=== PATIENT | male | born 1935 | race Caucasian/White ===

== ENCOUNTER 2018-09-29 08:51 | Inpatient (IN) ==
--- NOTE | 2018-09-29 09:15 | PROVIDER DOCUMENTATION ---
PPX-Ctevxa-Lqxozygargv - General Stated Complaint: fall Time Seen by Provider: 09/29/18 09:10 Source: patient, family (daughter at the bedside) Allergies/Adverse Reactions: Patient Allergies Allergy/AdvReac Type Severity Reaction Status Date / Time No Known Allergies Allergy Verified 09/29/18 09:20 Home Medications: Home Medication List Medication Instructions Recorded Confirmed Last Taken Type Metformin [Glucophage] 1,000 mg PO BID 06/10/18 06/10/18 06/10/18 08:00 History Sertraline HCl [Zoloft] 100 mg PO DAILY 06/10/18 06/10/18 06/10/18 11:00 History - History of Present Illness -Trauma Nature of Presenting Problem: came in via EMS for s/p fall, slipped and fall, this morning in his room. karugter reports that normally he gets up with assistance, but he got up on his own his own and slipped on his sock and hit his head on the corner of his dress. family heard a loud sound, came saw him laying on the floor. daughter reports that he had small pooled of blood on the floor and complaint of right hip pain. also complaint of nausea. gave morphine at home since he a hospice patient. enroute his bleeding is hemostatic and did not complaint of pain. denied n/v/headache, diplopia. history of mild dementia and DM Review of Systems - Adult - REVIEW OF SYSTEMS - ADULT Constitutional: reports: no symptoms reported Eyes: reports: no symptoms reported Ears, Nose, Mouth & Throat: reports: no symptoms reported Cardiovascular: reports: no symptoms reported Respiratory: reports: no symptoms reported Gastrointestinal: reports: no symptoms reported Genitourinary: reports: no symptoms reported Musculoskeletal: reports: no symptoms reported Integumentary: reports: no symptoms reported Neurological: reports: no symptoms reported Psychiatric: reports: no symptoms reported Endocrine: reports: no symptoms reported Hematologic/Lymphatic: reports: no symptoms reported Allergic/Immunologic: reports: no symptoms reported All Other Systems: Reviewed and Negative Past History - Adult - PAST MEDICAL HISTORY-ADULT Review of Records: reports: Old Records Reviewed, Nursing Assessment Review, Medications Reviewed, Social history reviewed & non-contributory. Major Childhood Illnesses: reports: denies history Cardiovascular: reports: denies history Respiratory: reports: denies history Gastrointestinal: reports: denies history Obstetrical/Gynecological: reports: denies history Genitourinary: reports: denies history Musculoskeletal: reports: denies history Neurological: reports: dementia Endocrine/Immune: reports: Diabetes Other Conditions: reports: denies history - PRIOR SURGERIES/PROCEDURES Surgical/Procedure History: reports: appendectomy - IMMUNIZATION STATUS Childhood Immunizations: See Nurse Assessment Flu Vaccine: See Nurse Assessment - FAMILY HISTORY Family History: reviewed, not pertinent - SOCIAL HISTORY Smoking: denies Substance Use: none/never Alcohol Use Frequency: never Physical Exam-Injury Related - Physical Exam-Injury Related Initial Vital Signs Reviewed: Yes General Appearance: appears well, alert, no apparent distress Eyes: PERRL/EOMI Head, Ears, Nose, Mouth & Throat: normocephalic/atraumatic, moist mucous membranes, normal ENT inspection, TMs normal Neck: non-tender, full range of motion, supple, normal inspection Respiratory: chest non-tender, lungs clear, normal breath sounds, no pleuratic chest pain Cardiovascular: normal peripheral pulses, regular rate, rhythm, no edema Abdominal Exam: normal bowel sounds, non tender, soft Back Exam: normal inspection, no CVA tenderness, no vertebral tenderness Extremity: normal inspection (w/o obvious deformity.), no pedal edema, no calf tenderness, normal capillary refill, pelvis stable Integumentary: normal color, warm/dry, other (posterior head 3cm, dry and nonbleeding laceration) 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 negative: facial droop, focal weakness, motor weakness Psych/Mental Status: normal mood/affect, normal thought content, normal thought process, oriented x 3 Progress - PLAN OF CARE/RESULTS Progress/Plan/Lab Results: Vital Signs - 8 hr 09/29/18 08:55 Temperature 97.5 F L Pulse Rate 111 H Respiratory Rate 18 Blood Pressure 137/87 O2 Sat by Pulse Oximetry 96 Laboratory Results - last 24 hr 09/29/18 09/29/18 09/29/18 12:37 12:37 12:37 WBC 15.18 H RBC 4.88 Hgb 14.5 Hct 43.6 MCV 89.3 MCH 29.7 MCHC 33.3 RDW Std Deviation 15.5 H Plt Count 281 MPV 9.0 Immature Gran % (Auto) 0.5 Neut % (Auto) 86.6 H Lymph % (Auto) 7.0 L [place] % (Auto) 5.7 Eos % (Auto) 0.1 Baso % (Auto) 0.1 Immature Gran # (Auto) 0.07 H Neut # (Auto) 13.16 H Lymph # (Auto) 1.07 L Comal # (Auto) 0.86 H Eos # (Auto) 0.01 Baso # (Auto) 0.01 PT 15.3 INR 1.12 PTT (Actin FS) 34.1 Sodium 140 Potassium 4.3 Chloride 102 Carbon Dioxide 21 L Anion Gap 17 BUN 18 Creatinine 0.9 Estimated GFR/1.73 m2 > 60 BUN/Creatinine Ratio 20 Glucose 184 H Calculated Osmolality 286 Calcium 8.7 L Total Bilirubin 0.56 AST 23 ALT 18 Alkaline Phosphatase 82 Total Protein 7.5 Albumin 3.7 Globulin 3.8 Albumin/Globulin Ratio 1.0 Orders Category Date Time Status Aragon Cath Insertion ORDERED Care 09/29/18 11:13 Active Suture Tray Set-Up DIRECTED Care 09/29/18 10:54 Active NPO Diet 09/30/18 00:[address] HEAD W/O CONTRAST [CT] Stat Exams 09/29/18 09:08 Completed XRAY PELVIS W/HIP 2-3VW RT [RAD] Stat Exams 09/29/18 09:08 Completed CBC WITH ELECTRONIC DIFF [HEME] Stat Lab 09/29/18 12:37 Completed COMPREHENSIVE METABOLIC PANEL [CHEM] Stat Lab 09/29/18 12:37 Completed PROTIME WITH INR [COAG] Stat Lab 09/29/18 12:37 Completed PTT [COAG] Stat Lab 09/29/18 12:37 Completed 0.9% Sodium Chloride Inj [Ns] 500 ml Med 09/29/18 11:17 Active IV 75 mls/hr Lidocaine 1%/Epi 1:100,000 [Xylocaine 1%/Epi 1:100,000] Med 09/29/18 10:54 Discontinued 10 ml INJ NOW ONE EKG [EKG] Stat Ther 09/29/18 09:09 Ordered [facility] [address] , [address], [place] [address] Department of Imaging Patient: QUINTEN AMBROCIO ADM Date: 09/29/18 MR#: [id number] : 1935 ADM Status: REG ER Age/Sex: 83/M Room/Bed: Loc: ED Ordering Physician: Yovana Butler MD Family Physician: Chavez Bauer MD Reason for Procedure: s/p fall ___ Signed EXAM: CT HEAD W/O CONTRAST - 09/29/2018 HISTORY: s/p fall TECHNIQUE: CT head without contrast COMPARISON: 06/20/2018 FINDINGS: There are atrophic changes similar to prior. There is no evidence of intracranial hemorrhage, mass effect, or midline shift. There is no evidence of infarct, although acute infarcts may not be immediately visible. There is no evidence of skull fracture. IMPRESSION: No visible acute intracranial abnormality. No evidence of intracranial injury. This exam was performed using automated exposure control, adjustment of mA or kV according to patient size, and/or use of iterative reconstruction technique. Electronically signed by Naveen Dunham 09/29/2018 10:19 AM 09/29/18 1019 Interpreting Physician: Naveen Dunham MD Dictated Date/Time: 09/29/18 1016 cc: Yovana Butler MD; Chavez Bauer MD [address], [place] [address] Department of Imaging Patient: QUINTEN AMBROCIO ADM Date: 09/29/18 MR#: [id number] : 1935 ADM Status: REG ER Age/Sex: 83/M Room/Bed: Loc: ED Ordering Physician: Yovana Butler MD Family Physician: Chavez Bauer MD Reason for Procedure: s/p fall ___ Signed EXAM: XRAY PELVIS W/HIP 2-3VW RT - 09/29/2018 HISTORY: s/p fall TECHNIQUE: Right hip and pelvis two views COMPARISON: None. FINDINGS: There is an intertrochanteric fracture of the right femur with mild varus deformity. There is no other fracture or dislocation identified. IMPRESSION: Intertrochanteric fracture of right femur. Electronically signed by Naveen Dunham 09/29/2018 10:40 AM 09/29/18 1040 Interpreting Physician: Naveen Dunham MD Dictated Date/Time: 09/29/18 1039 cc: Yovana Butler MD; Chavez Bauer MD Result Diagrams: 09/29/18 12:37 09/29/18 12:37 - CONSULTS/PCP/HOSPITALIST Notification #1 *Consult/PCP/Hospitalist*: dr. Mcmanus Time Discussed: 11:16 Consult Disposition: Will see in ED, Admit (by hospitalist and consult for OR tomorrow) #2 Consult: dr. Hunt Time Discussed: 13:20 Consult Disposition: Admit Departure - Departure Date of Disposition Decision: 09/29/18 Time of Disposition Decision: 13:20 DIAGNOSIS: Status post fall, Laceration of head, Intertrochanteric fracture of right femur Disposition: ADMITTED INPATIENT 09 Certified Medical Emergency: Emergent Condition: Stable Referrals and Follow-Ups: Chavez Bauer MD [Primary Care Provider] - - Critical Care Note This patient required my direct & personal management of CC.: No Attestation - Physician/ CHEY Attestation Patient care was provided by Advanced Practice Provider:: No The physician spent face to face time with patient:: Yes Advanced Practice Provider documentation review:: Supervising physician onsite and consulted in the evaluation and care of this patient. The physician did have a face to face encounter with the patient.
--- NOTE | 2018-09-29 10:22 | Diag Imaging Result Doc PS360 ---
EXAM: CT HEAD W/O CONTRAST - 09/29/2018 HISTORY: s/p fall TECHNIQUE: CT head without contrast COMPARISON: 06/20/2018 FINDINGS: There are atrophic changes similar to prior. There is no evidence of intracranial hemorrhage, mass effect, or midline shift. There is no evidence of infarct, although acute infarcts may not be immediately visible. There is no evidence of skull fracture. IMPRESSION: No visible acute intracranial abnormality. No evidence of intracranial injury. This exam was performed using automated exposure control, adjustment of mA or kV according to patient size, and/or use of iterative reconstruction technique. Electronically signed by Naveen Dunham 09/29/2018 10:19 AM
--- NOTE | 2018-09-29 10:42 | Diag Imaging Result Doc PS360 ---
EXAM: XRAY PELVIS W/HIP 2-3VW RT - 09/29/2018 HISTORY: s/p fall TECHNIQUE: Right hip and pelvis two views COMPARISON: None. FINDINGS: There is an intertrochanteric fracture of the right femur with mild varus deformity. There is no other fracture or dislocation identified. IMPRESSION: Intertrochanteric fracture of right femur. Electronically signed by Naveen Dunham 09/29/2018 10:40 AM
[2018-09-29] MEDS ORDERED: XYLOCAINE 1%/EPI 1:100,000 INJ ONE (10:54)
[2018-09-29] MEDS ORDERED: NS 500 ML IV ONE (11:17)
[2018-09-29 12:50] LABS: BASO# 0.01 X1000 (0.0-0.2); BASO% 0.1 % (0.0-0.8); EOS# 0.01 X1000 (0.0-0.7); EOS% 0.1 % (0.0-10.0); HEMATOCRIT 43.6 % (42.0-52.0); HEMOGLOBIN 14.5 g/dL (14.0-18.0); IMM GRAN# 0.07 X1000 (0.0-0.04); IMM GRAN% 0.5 % (0.0-0.5); LYMPH# 1.07 X1000 (1.2-3.4); MCH 29.7 PG (27-31); MCHC 33.3 g/dL (33-37); MCV 89.3 FL (81-99); MONO# 0.86 X1000 (0.11-0.59); MONO% 5.7 % (1.7-9.3); NEUT# 13.16 X1000 (1.4-6.5); NEUT% 86.6 % (42.2-75.2); PLT 281 X1000 (130-400); RBC 4.88 XMIL (4.7-6.1); RDW 15.5 % (11.5-14.5); WBC 15.18 X1000 (4.8-10.8)
[2018-09-29 12:56] LABS: INR 1.12; PROTIME 15.3 Seconds (11.0-16.0)
[2018-09-29 13:05] LABS: PTT 34.1 Seconds (22.3-41.8)
[2018-09-29 13:14] LABS: AGAP 17; ALBUMIN 3.7 g/dL (3.5-5.0); ALKALINE PHOSPHATASE 82 U/L (32-122); BUN 18 mg/dL (8-22); CALCIUM 8.7 mg/dL (8.8-10.2); CHLORIDE 102 mmol/L (98-107); COSMO 286; CREATININE 0.9 mg/dL (0.7-1.2); ESTIMATED GFR > 60; GLUCOSE 184 mg/dL (70-104); GOT 23 U/L (10-34); GPT 18 U/L (10-44); POTASSIUM 4.3 mmol/L (3.5-5.1); SODIUM 140 mmol/L (136-145); TCO2 21 mmol/L (25-35); TOTAL BILIRUBIN 0.56 mg/dL (0.20-1.00); TOTAL PROTEIN 7.5 g/dL (6.3-8.3)
[2018-09-29] MEDS ORDERED: MORPHINE IV ONE (13:32)
--- NOTE | 2018-09-29 13:33 | ED EKG INTERP ---
This chart was entered by Emily Zarate Scribe, acting as scribe for Yovana Butler MD. EKG Interpretation - EKG Time of EKG reading by physician:: 16:30 EKG Read and Signed by:: Yovana Butler EKG Interpretation (*Must complete 3 of following elements*): Abnormal Rate: 114 Rhythm: Sinus tachycardia QRS: RBB ST Wave: normal Attestation - Physician/ CHEY Attestation Patient care was provided by Advanced Practice Provider:: No The physician spent face to face time with patient:: Yes Advanced Practice Provider documentation review:: Supervising physician onsite and consulted in the evaluation and care of this patient. The physician did have a face to face encounter with the patient. This chart was documented by the indicated scribe, (Emily Zarate Scribe) and accurately reflects the services I performed and decisions made by me, Yovana Butler MD, as attested by the provider's signature.
[2018-09-29] MEDS ORDERED: MORPHINE IV PRN (15:17)
[2018-09-29 15:55] LABS: HEMOGLOBIN A1C 7.3 % (4.8-6.0)
--- NOTE | 2018-09-29 16:30 | HISTORY AND PHYSICAL ---
CHIEF COMPLAINT: Fall with right hip pain. HISTORY OF PRESENT ILLNESS: Mr. Pal is an 83-year-old, male, with a history of severe dementia, hypertension, diabetes mellitus, who presents with acute right hip pain status post fall. The patient cannot give any type of history given mental status. His daughter, who is at the bedside, states that he was on hospice and has been for about two weeks. He had an accidental trip and fall and hit his head earlier this morning. There was no loss of consciousness, per the daughter, but there was a laceration on his head and some blood on the floor. She brought him to the ER. In the ER, head CT was done. This did not show anything acute. He had nine ronnie put into the posterior spiritism area of the scalp. A hip x-ray was done which showed right intertrochanteric hip fracture. Orthopedics was consulted and they will likely proceed with surgery in the morning. However, the family is trying to decide on whether or not they want to proceed with surgical intervention, as the patient is essentially bedbound and sleeps upwards of 20 hours a day. He has a DNR level 1. PAST MEDICAL HISTORY: 1. Severe dementia. 2. Hypertension. 3. Diabetes mellitus. 4. Question of pulmonary fibrosis. Chest x-ray done last year did show question of pulmonary fibrosis. However, this was never followed up on. 5. Depression and anxiety. PAST SURGICAL HISTORY: He has had an appendectomy. SOCIAL HISTORY: No tobacco, alcohol or drug use. He lives with his daughter and son-in-law. FAMILY HISTORY: Noncontributory. REVIEW OF SYSTEMS: Unable to obtain. HOME MEDICATIONS: Ativan 0.5 mg p.o. t.i.d., Glucophage 2000 mg p.o. b.i.d., Seroquel 100 mg p.o. at bedtime, Zoloft 100 mg p.o. daily. ALLERGIES: No known drug allergies. PHYSICAL EXAM: VITAL SIGNS: Blood pressure 113/64, heart rate 114, respiratory rate 18, O2 saturation 95% on room air. Temperature is 97.8. GENERAL: This is a frail, elderly, 83-year-old male lying in hospital bed in no acute distress. NEUROLOGIC: The patient is completely disoriented, but he does follow commands without any focal deficit. HEENT: Seven mm linear laceration with ronnie noted to the right posterior lateral scalp. Otherwise, head is atraumatic and normocephalic. Eyes: Pupils are equal, round and reactive to light. ENT: Oral mucosa is a dry. NECK: Trachea is midline. There is no JVD. CHEST: Diminished at the bases but clear. CARDIOVASCULAR: Regular rate and rhythm. S1, S2 is noted. There is a 2/6 murmur noted. GASTROINTESTINAL: Soft. Nondistended. Nontender. Bowel sounds are active. EXTREMITIES: No edema or clubbing. Pulses are 1+ bilaterally. DIAGNOSTIC DATA: Head CT is negative. EKG shows sinus tachycardia with a right bundle branch block. WBC 15.18, hemoglobin 14.5, hematocrit 43.6, platelet count 281,000. INR 1.12. Sodium 140, potassium 4.3, chloride 102, CO2 21. Anion gap 17. BUN 18, creatinine 0.9, glucose 184, calcium 8.7. LFTs within normal limits. Protein 7.5. IMPRESSION AND PLAN: 1. Right intertrochanteric hip fracture: Surgical management per Orthopedics. The patient's family is trying to decide if they want him to proceed with surgery given his essential bedbound state. Will have them discuss that with Orthopedics further. We will continue with pain management. Consult social work. 2. Diabetes mellitus: Add patterned sugars, sliding scale insulin. 3. Dementia with behavioral disturbance: Stable, continue home medications. 4. Leukocytosis: Likely reactive. We are awaiting a urinalysis and a chest x-ray. 5. Deep venous thrombosis prophylaxis with sequential compression device to left leg. Further recommendations to follow. Dictated by ABEL Chisholm for Benny Hunt MD cc: ABEL Chisholm MD
[2018-09-29] MEDS ORDERED: GLUCOPHAGE PO SCH (17:00)
[2018-09-29] MEDS ORDERED: KEFZOL 1 GM/D5W 1 GM/50 ML IVPB IV ONE (18:10)
[2018-09-29] MEDS: ATIVAN PO SCH (19:00)
[2018-09-29] MEDS: HUMULIN R SUBQ SCH ×2 (19:00→22:13)
--- NOTE | 2018-09-29 19:25 | Diag Imaging Result Doc PS360 ---
EXAM: CHEST-PORTABLE - 09/29/2018 HISTORY: leukocytosis TECHNIQUE: Portable chest COMPARISON: 06/10/2018 FINDINGS: Heart size appears upper normal. Inspiration is somewhat shallow. There is bilateral pulmonary fibrosis similar to prior. There is subsegmental atelectasis at bilateral lung bases. There is no dense consolidation, pleural effusion, or pneumothorax identified. IMPRESSION: Somewhat shallow inspiration, with bibasilar subsegmental atelectasis. Bilateral pulmonary fibrosis. No discrete pneumonia. Electronically signed by Naveen Dunham 09/29/2018 7:23 PM
[2018-09-29 20:35] LABS: URINE SOURCE CATH
[2018-09-29 20:37] LABS: BILIRUBIN URINE NEGATIVE (NEGATIVE); BLOOD URINE LARGE (NEGATIVE); COLOR ORANGE; GLUCOSE URINE TRACE mg/dL (NEGATIVE); KETONE URINE 20 mg/dL (NEGATIVE); LEUKOCYTES URINE TRACE (NEGATIVE); NITRITE URINE NEGATIVE (NEGATIVE); PH URINE 5.5; PROTEIN URINE 50 mg/dL (NEGATIVE); SP GRAVITY URINE 1.019; TURBIDITY URINE HAZY (CLEAR); UROBILINOGEN URINE 2 mg/dL (NORMAL)
[2018-09-29 20:39] LABS: UR EPITHELIAL CELLS <10 /HPF (<10); URINE BACTERIA NEGATIVE /HPF; URINE RBC TNTC /HPF (<10)
--- NOTE | 2018-09-29 20:44 | CONSULTATION ---
DATE OF CONSULTATION: 09/29/2018 CHIEF COMPLAINT: Right hip pain. HISTORY OF PRESENT ILLNESS: Mr. Pal is an 83-year-old male who complains of right hip pain and inability to ambulate. For past medical history, past surgical history, medicines, and allergies see admission history and physical. OBJECTIVE: He is a well-developed, well-nourished male. He is cooperative with exam. Exam of his leg reveals pain with any range of motion. His leg is otherwise neurovascularly intact. X- rays show a right displaced intertrochanteric hip fracture. IMPRESSION: Right displaced intertrochanteric hip fracture. PLAN: I think we should proceed with right trochanteric fixation and nail placement. I have discussed with his family the risks, benefits, and alternatives of surgery, including, but not limited to, bleeding, nerve damage, infection, risk from anesthesia, hardware failure, malunion, nonunion, continued pain, and the possibility of bedsores and pneumonia for nonoperative treatment, up to including loss of limb and life, and other imponderables. All questions were answered. No guarantees were given. They requested we proceed as planned. cc: Home Mcmanus MD
[2018-09-29] MEDS: SEROQUEL PO SCH (22:14)
[2018-09-30 06:13] LABS: HEMATOCRIT 41.1 % (42.0-52.0); HEMOGLOBIN 13.9 g/dL (14.0-18.0); MCH 30.5 PG (27-31); MCHC 33.8 g/dL (33-37); MCV 90.1 FL (81-99); MPV 9.3 FL (7.4-10.4); RBC 4.56 XMIL (4.7-6.1); RDW 15.8 % (11.5-14.5); WBC 11.26 X1000 (4.8-10.8)
[2018-09-30] MEDS: HUMULIN R SUBQ SCH ×4 (06:28→22:47)
[2018-09-30 07:07] LABS: AGAP 15; BUN 13 mg/dL (8-22); CALCIUM 9.1 mg/dL (8.8-10.2); CHLORIDE 102 mmol/L (98-107); COSMO 284; ESTIMATED GFR > 60; GLUCOSE 182 mg/dL (70-104); POTASSIUM 3.9 mmol/L (3.5-5.1); SODIUM 140 mmol/L (136-145); TCO2 23 mmol/L (25-35)
--- NOTE | 2018-09-30 08:10 | EKG Report ---
Test Performed on : 09/29/2018 10:24:44 AM Test Reason : CP Blood Pressure : / mmHG Vent. Rate : 114 BPM Atrial Rate : 114 BPM P-R Int : 138 ms QRS Dur : 152 ms QT Int : 386 ms P-R-T Axes : 045 018 012 degrees QTc Int : 532 ms Sinus tachycardia. Right bundle branch block Abnormal ECG When compared with ECG of 10-JUN-2018 16:07, (Unconfirmed) No significant change was found Unconfirmed Result
[2018-09-30] MEDS: GLUCOPHAGE PO SCH ×2 (08:33→17:08)
[2018-09-30] MEDS: ATIVAN PO SCH ×3 (08:34→17:09)
[2018-09-30] MEDS: ZOLOFT PO SCH (08:34)
[2018-09-30] MEDS ORDERED: XYLOCAINE-MPF 2% ONE (10:25)
[2018-09-30] MEDS ORDERED: DIPRIVAN 1% ONE (10:25)
[2018-09-30] MEDS ORDERED: FENTANYL ONE (10:26)
[2018-09-30] MEDS ORDERED: KEFZOL 1 GM/D5W 1 GM/50 ML IVPB ONE (10:49)
[2018-09-30] MEDS ORDERED: STERILE WATER INJ. ONE (11:49)
[2018-09-30] MEDS ORDERED: NEO-SYNEPHRINE ONE (11:49)
--- NOTE | 2018-09-30 12:28 | OPERATIVE NOTE ---
PROCEDURE DATE: 09/29/2018 PREOPERATIVE DIAGNOSIS: Right intertrochanteric hip fracture. POSTOPERATIVE DIAGNOSIS: Right intertrochanteric hip fracture. PROCEDURE: Right trochanteric fixation nail placement. ANESTHESIA: Spinal. SURGEON: Home Mcmanus MD. KNITTER MECHANIC: IRVIN Daniels. COMPLICATIONS: None. BLOOD LOSS: Minimal. DESCRIPTION OF PROCEDURE: Patient was brought to the operative suite and placed in the supine position. After successful administration of spinal anesthesia, the patient was placed on the OSI table in the usual position for right hip. The right hip was then prepped and draped in the usual sterile fashion. A longitudinal incision was made in the proximal tip of the greater trochanter. A guide pin was placed in center of the femoral canal on AP and lateral images. It was reamed with a solid cannulated reamer. A 12 short trochanteric fixation nail was then driven into place and then through a stab incision laterally a guide pin was placed in the center of the femoral head on AP and lateral images. It was measured to 105 mm. The track of the helical blade was drilled and then the helical blade was driven into place. It was locked proximally and then released to allow for compression. Then using the guide, the distal locking screw was placed through a stab incision. It was drilled properly and a screw of 42 mm was measured and driven into place. The guide was removed. Excellent reduction of fracture and placement of hardware was obtained on AP and lateral images. Wounds were copiously irrigated. Skin edge approximated with 2-0 Vicryl, skin was closed with skin ronnie, and a sterile dressing was applied. The patient tolerated the procedure well without complications. At the end of the procedure all counts correct x2. The patient was transferred to the recovery room in stable condition. cc: Home Mcmanus MD
[2018-09-30] MEDS ORDERED: ZOFRAN IV PRN (13:07)
[2018-09-30] MEDS ORDERED: MILK OF MAGNESIA PO PRN (13:07)
[2018-09-30] MEDS ORDERED: HALDOL IV PRN (13:07)
[2018-09-30] MEDS ORDERED: OXY IR PO PRN (13:07)
[2018-09-30] MEDS ORDERED: MORPHINE IV PRN (13:07)
--- NOTE | 2018-09-30 16:34 | PROGRESS NOTE ---
DATE: 09/30/2018 SUBJECTIVE: This morning, Mr. Pal refers to be doing fairly okay. No complaints except for the right hip pain. He was waiting for surgery. OBJECTIVE: Vital signs: Blood pressure was 129/74, pulse was 98, respirations 20, temperature is 98.3 degrees. General: Mr. Pal is an 83-year-old gentleman who was in bed. No distress. HEENT: Mucosa was pink and moist. Anicteric. Acyanotic. Neck: Supple. Chest: Good air entry bilateral. There was no crepitations. No rhonchi. Cardiovascular: Regular rate and rhythm. No murmurs, no rubs, no gallops. Abdomen: Soft, nontender. Bowel sounds were present. Extremities: No pedal edema. The right lower extremity was externally rotated, Central Nervous System: Patient was awake, alert. LABORATORY DATA: WBC was 11.26, hemoglobin 13.9, platelet count of 226,000. Chemistry is also reviewed, unremarkable. CURRENT MEDICATIONS: 1. Tylenol p.r.n. 2. Colace 200 p.o. at bedtime. 3. Lovenox for DVT prophylaxis. 4. Haldol p.r.n. 5. Milk of magnesia. 6. Seroquel 100 mg at bedtime. 7. Sertraline 100 mg p.o. daily. ASSESSMENT: 1. Right intertrochanteric hip fracture. Patient has been evaluated by Orthopedics. There is a plan for intervention today. 2. Severe dementia with behavioral disturbances. 3. Diabetes mellitus currently controlled. 4. Currently on hospice care at home due to severe end-stage dementia. PLAN: In general, Mr. Pal is fairly stable. He is pending surgical intervention today. I understand the family members would want to have him home after the surgery, to continue on hospice. They do not want him to go to any rehab. cc: Benny Hunt MD
[2018-09-30] MEDS: TYLENOL PO SCH (17:09)
[2018-09-30] MEDS: KEFZOL 1 GM/D5W 1 GM/50 ML IVPB IV SCH (17:38)
[2018-09-30] MEDS ORDERED: COLACE PO SCH (21:00)
[2018-09-30] MEDS: SEROQUEL PO SCH (22:38)
[2018-09-30] MEDS: PERIDEX MT SCH (22:38)
[2018-10-01] MEDS: TYLENOL PO SCH ×2 (01:01→12:02)
[2018-10-01] MEDS: KEFZOL 1 GM/D5W 1 GM/50 ML IVPB IV SCH ×2 (02:42→12:00)
[2018-10-01] MEDS ORDERED: LOVENOX SUBQ SCH (06:00)
[2018-10-01 06:07] LABS: HEMATOCRIT 37.8 % (42.0-52.0); HEMOGLOBIN 12.8 g/dL (14.0-18.0); MCH 30.7 PG (27-31); MCHC 33.9 g/dL (33-37); MCV 90.6 FL (81-99); MPV 9.5 FL (7.4-10.4); RBC 4.17 XMIL (4.7-6.1); RDW 15.6 % (11.5-14.5); WBC 11.66 X1000 (4.8-10.8)
[2018-10-01 06:32] LABS: AGAP 15; BUN 16 mg/dL (8-22); CALCIUM 8.9 mg/dL (8.8-10.2); CHLORIDE 101 mmol/L (98-107); COSMO 284; CREATININE 0.9 mg/dL (0.7-1.2); ESTIMATED GFR > 60; GLUCOSE 197 mg/dL (70-104); POTASSIUM 3.6 mmol/L (3.5-5.1); SODIUM 139 mmol/L (136-145); TCO2 23 mmol/L (25-35)
[2018-10-01] MEDS: HUMULIN R SUBQ SCH (06:41)
--- NOTE | 2018-10-01 08:08 | PROGRESS NOTE ---
DATE: 10/01/2018 SUBJECTIVE: Mr. Pal is an 83-year-old male, who is postoperative day 1 from a right trochanteric fixation nail placement. He complained of some pain at this time, but overall he is doing well. OBJECTIVE: General: He is a well developed, well nourished male. He is alert , oriented, and cooperative with the examination. He is in no acute distress. Vital Signs: Stable. He is afebrile. Extremities: His right hip dressings are clean, dry, and intact. LABS: His hemoglobin is 12.8 and his hematocrit is 37.8. ASSESSMENT: Stable postoperative day 1 from a right trochanteric fixation nail placement. PLAN: The patient is not a candidate for physical therapy. Once he is medically stable he can be discharged home to continue hospice care. We will continue to monitor him and manage his pain. Dictated by IRVIN Daniels for Home Mcmanus MD cc: IRVIN Daniels MD MTDD
[2018-10-01] MEDS ORDERED: FERROUS SULFATE PO SCH (09:00)
[2018-10-01 11:41] VITALS: BP 128/77
[2018-10-01] MEDS: GLUCOPHAGE PO SCH (12:01)
[2018-10-01] MEDS: PERIDEX MT SCH (12:02)
[2018-10-01] MEDS: ATIVAN PO SCH (12:02)
[2018-10-01] MEDS: ZOLOFT PO SCH (12:02)
--- NOTE | 2018-10-01 15:03 | DISCHARGE SUMMARY ---
ADMISSION DATE: 09/29/2018 DISCHARGE DATE: 10/01/2018 CONSULTATIONS: Dr. Mcmanus with Orthopedics. PERTINENT PROCEDURES: 1. Head CT. No visible acute intracranial abnormality. No evidence of intracranial injury. 2. Heel/pelvis x-ray. Intertrochanteric fracture of the right femur. 3. Right trochanteric fixation nail placement performed by Dr. Mcmanus. DISCHARGE DIAGNOSES: 1. Right intertrochanteric hip fracture status post nailing by Dr. Mcmanus. The patient is not a candidate for physical therapy for his severe dementia. He is medically stable and will be discharged back home with hospice care. Will continue with pain management. 2. Severe dementia with behavioral disturbances. 3. Diabetes mellitus, controlled. 4. Currently on hospice at home due to severe end-stage dementia. HOSPITAL COURSE: Briefly, Mr. Pal is an 83-year-old male with a history of end- stage dementia, hypertension, diabetes. Presented to the ED for acute right hip pain status post fall. The patient had been on hospice for about 2 weeks. He had an accidental trip and fall. He did hit his head. There was no loss of consciousness. Workup in the ED, head CT was negative. His hip x-ray showed an intertrochanteric hip fracture. Orthopedics was consulted. Family would like to proceed with surgical intervention. He was a DNR level 1. He did undergo a nailing with Dr. Mcmanus. He was not a candidate for physical therapy. He has had a stable hospital course and will return back to his home today to continue with hospice. VITAL SIGNS: At time of discharge: Temperature is 97.5 axillary, heart rate 103, respirations 18, blood pressure 108/78, O2 is 95% on 2 L nasal cannula. DISCHARGE DIET: GI soft. DISCHARGE MEDICATIONS: 1. Seroquel 100 mg p.o. at bedtime. 2. Lorazepam 0.5 mg p.o. t.i.d. 3. Glucophage 1000 mg p.o. b.i.d. 4. Zoloft 100 mg p.o. daily. 5. Colace 200 mg p.o. at bedtime. 6. OxyIR 5 mg p.o. q.3 hours p.r.n. 7. Ferrous sulfate 325 mg p.o. daily. FOLLOWUP: Mr. Pal is being discharged back home with hospice. He is with [facility]. Again, he is not a candidate for physical therapy given his end-stage dementia and family's request to take back home on hospice. He can return to the ED or call 911. Dictated by ABEL Reynolds for Chase Peterson MD Addendum: Patient seen and examined by myself. Agree with ABEL note. It reflects my assessment and plan. Patient is being discharged in stable condition with home IV anabiotics. cc: MD Chavez Cespedes MD Richard S. Sharp, MD MTDD
== END 2018-10-01 13:34 | disposition hospice, home (50) | DRG 481 ==
LOC: SUPCPDRO → ED 08:51 → 4N 14:12 → SUATTDRO 14:12
PROVIDERS: ATTEND Internal Medicine
CPT/HCPCS: 70450; 71010; 71045; 73502; 76000; 80048; 80053; 81001; 82948; 83036; 83735; 84443; 85025; 85027; 85610; 85730; 87088; 93005; 94761; 94799; A9270; J0690; J1650; J2270; J2370; J3010; J7040; XXXXX